=== PATIENT | male | born 1965 | race Caucasian/White ===

== ENCOUNTER → 2024-08-12 12:42 | Outpatient (CLI) | payer OTHER, SELFPAY ==
--- NOTE | 2024-08-12 12:44 | DI.RAD.S_ITS ---
PROCEDURE: XR KNEE RT 3V INDICATIONS: Right knee pain, chronic TECHNIQUE: 3 views of the knee were acquired. COMPARISON: None. FINDINGS: Bones: There are no osseous abnormalities. Joints: The tibialfemoral and patellofemoral joints show mild degeneration. Small effusion noted. Soft tissues: Normal IMPRESSION: Mild degeneration. Dictated by: Miguel Horan M.D. on 08/13/2024 at 12:46 Approved by: Miguel Horan M.D. on 08/13/2024 at 12:47
--- NOTE | 2024-08-12 12:44 | DI.RAD.S_ITS ---
PROCEDURE: XR HIP W PEL IF DONE LT 2V INDICATIONS: Left hip pain TECHNIQUE: AP pelvis with lateral view(s) of the left hip(s). COMPARISON: None. FINDINGS: Bones: There are no osseous abnormalities. SI and hip joints: Mild right hip congenital dysplasia noted with acetabular uncovering of the lateral femoral head. There is only minimal degenerative change of the hips. SI joints are normal. Soft tissues: No soft tissue swelling, calcification or mass. 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 on 08/13/2024 at 12:45 Approved by: Miguel Horan M.D. on 08/13/2024 at 12:46
== END ==
PROVIDERS: PCP Family Medicine; Referring Provider Family Medicine; Visit Provider Family Medicine
DX: M25.552 Pain in left hip (principal); Q65.89 Other specified congenital deformities of hip
CPT/HCPCS: 73502; 73562